=== PATIENT | male | born 1970 | race Caucasian/White ===

== ENCOUNTER → 2017-02-28 | Outpatient (CLI) | payer BC ==
[~2017-02-28] MED LIST: FLOMAX0.4 MG PO; MACRODANTIN PO; NO MEDICATIONS; TYLOX 5/500 CAP1 CAP PO; ZOFRAN PO
--- NOTE | ~2017-02-28 | CT4 ---
[facility] A Service of [facility] RADIOLOGY TEXT RESULTS PATIENT: JESSIE CONNOR LOCATION: [facility] : 72 UNIT #: [id number] AGE: [address]: Izzy Conrad MD SEX: M ORDER DR: [id number] [facility] [address] [place], [place] [address] [id number] O MR#: [id number] [facility] #: [id number] NAME: JESSIE CONNOR : 1970 SEX: M STUDY DATE/TIME: 02/28/2017 14:27 UNIT: [facility] ROOM: STUDY DESCRIPTION: CT Abd and Pelv Wo Cont Attending Physician: Izzy Conrad M.D. Referring Physician: Izzy Conrad M.D. Ordering Physician: Izzy Conrad M.D. Primary Care Physician: Izzy Conrad M.D. MEDICAL IMAGING REPORT This report is preliminary unless electronic signature is present EXAM CT abdomen and pelvis without contrast INDICATION Abdominal pain 5 days, diarrhea for 1 day. COMPARISON 03/11/2015 Patient refused IV contrast. Axial 3 mm images were obtained through the abdomen and pelvis without IV or oral contrast. Sagittal and coronal reconstructions were generated. This CT exam was performed with one or more of the following radiation dose reduction techniques: automatic exposure control, adjustment of mA and/or kV according to patient size, and iterative reconstruction. FINDINGS The lung bases are clear. The liver, gallbladder, spleen, pancreas, adrenal glands and aorta are normal. Right kidney has a nonobstructing 3 mm stone in the lower pole. The left kidney has two or three nonobstructing stones measuring 2 to 4 mm in size. There is also mild left hydronephrosis and the left ureter is slightly dilated. This is caused by a distal ureteral stone measuring 5 mm in diameter. There is no adenopathy. The bowel appears normal. The bladder and prostate gland are normal. The bones are unremarkable except for bilateral pars defects at L4 with grade 1 anterior spondylolisthesis of L4 on L5. IMPRESSION 1. A 5 mm distal left ureteral stone causing mild hydronephrosis. 2. Nonobstructing tiny stones in each kidney. [facility]. [facility] A Service of [facility] RADIOLOGY TEXT RESULTS PATIENT: JESSIE CONNOR LOCATION: [facility] : 72 UNIT #: [id number] AGE: [address]: Izzy Conrad MD SEX: M ORDER DR: 3. Grade 1 anterior spondylolisthesis of L4 on L5 due to bilateral pars defects and degenerative changes. Dictated by... Casey Strange M.D. THIS IS AN ELECTRONICALLY VERIFIED REPORT Casey Strange M.D. at 03/01/2017 1:30 PM YOLY/nikos TD: 02/28/2017 23:58 JOB #: [id number] MEDICAL IMAGING REPORT Page 1 of 1 COPY
[2017-02-28 14:05] LABS: CREATININE SERUM 1.1 mg/dL (0.6-1.4); GLOM FILT RATE Estimated 80.7 mL/min (>60)
== END | disposition home or self-care (01) ==
LOC: CCAT 12:49
PROVIDERS: Internal Medicine
DX: R10.9 Unspecified abdominal pain (principal); N13.2 Hydronephrosis with renal and ureteral calculous obstruction; M43.16 Spondylolisthesis, lumbar region; M47.896 Other spondylosis, lumbar region
CPT/HCPCS: 36415; 74176; 82565; 84520